=== PATIENT | female | born 1965 | race Caucasian/White ===

== ENCOUNTER 2017-07-07 14:28 | Emergency (ER) | payer OTHER ==
[~2017-07-07] VITALS: Ht 157.5 cm; Wt 64.0 kg
[2017-07-07 14:54] VITALS: Ht 157.5 cm; Wt 64.0 kg
[2017-07-07] MEDS ORDERED: HYDROCODONE/APAP (5/325) TAB PO ONE (17:30)
--- NOTE | 2017-07-07 18:32 | ERD ---
ER Documentation Chief Complaint Date/Time DATE: 07/07/17 TIME: 18:21 Chief Complaint Complains of left side of head and ear pain after a fall No KO HPI This is a 52 year old female presenting to ER after fall and head injury. Patient states she was in the shower when she slipped and fell hitting the back of her head. Patient is also having pain to posterior head and neck. No neck stiffness or obvious abnormality. No loss of consciousness. No nausea or vomiting. No laceration or bleeding. No change in vision, blurry vision or loss of vision. Patient wears glasses. ROS All systems reviewed and are negative except as per history of present illness. Medications Home Meds Active Scripts Hydrocodone/Acetaminophen (Pedro 5-325 Tablet) 1 Each Tablet, 1 TAB PO Q6H Y for PAIN, #7 TAB Prov:BUSHRA NAVARRO NP 07/07/17 Allergies Allergies: Coded Allergies: aspirin (Verified Allergy, Intermediate, Rash, 07/07/17) PMhx/Soc Medical and Surgical Hx: pt denies Medical Hx History of Surgery: Yes (tubal ligation ) Hx Miscellaneous Medical Probl: Yes (right breast biopsy) Hx Alcohol Use: No Hx Substance Use: No Hx Tobacco Use: No Smoking Status: Never smoker Physical Exam Vitals Vital Signs Date Time Temp Pulse Resp B/P Pulse Ox O2 Delivery O2 Flow Rate FiO2 07/07/17 19:47 58 18 115/74 100 Room Air 07/07/17 14:54 98.8 68 20 129/75 99 Physical Exam Const: alert, oriented Head: Atraumatic , no laceration, no obvious deformity Eyes: Normal Conjunctiva ENT: Normal External Ears, Nose and Mouth. Neck: Full range of motion..~ No meningismus. Resp: Clear to auscultation bilaterally Cardio: Regular rate and rhythm, no murmurs Abd: Soft, non tender, non distended. Normal bowel sounds Skin: No petechiae or rashes Back: No midline or flank tenderness Ext: No cyanosis, or edema Neur: Awake and alert Psych: Normal Mood and Affect Results 24 hrs Current Medications Medications (Trade) Dose Ordered Sig/Dm Route PRN Reason Start Time Stop Time Status Last Admin Dose Admin Acetaminophen/ Hydrocodone Bitart (Pedro (5/325)) 1 tab ONCE ONCE PO 07/07/17 17:30 07/07/17 17:31 DC 07/07/17 17:08 Procedures/MDM [place] [id number] Radiology Main Line: [phone] DIAGNOSTIC IMAGING REPORT Patient: ADAM ANN : 1965 Age: 52 Sex: F MR #: [id number] DOS: 07/07/171700 Ordering MD: BUSHRA NAVARRO NP Location: [facility] Room/Bed: PROCEDURE: CT Brain without contrast. CLINICAL INDICATION: Pain status post head injury TECHNIQUE: A CT of the brain was performed on a [employer] CT scanner utilizing axial imaging from the skull base through the vertex without IV contrast. Multiplanar reformatted images were made. Images were reviewed on a PACS workstation. The CTDIvol is 43.12 mGy and the DLP is 823.90 mGycm. One of the following 3 does reduction techniques were used during this CT examination: 1) Automated exposure control 2) Adjustment of the mA +/- kV according to patient size or 3) Use of iterative reconstruction technique COMPARISON: None FINDINGS: There is no intracranial hemorrhage, mass effect, or midline shift. No extra- axial fluid collection is seen. The ventricles and sulci are normal in size and configuration. The density of the brain is normal, and the daniels white matter differentiation appears well-preserved. The visualized scalp and calvarium are normal. The bilateral orbits are normal. The bilateral paranasal sinuses, mastoid air cells and middle ear cavities are clear. IMPRESSION: 1. No evidence of acute intracranial hemorrhage, infarcts, or acute intracranial pathology. 2. Normal noncontrast head CT. [place] [address] Radiology Main Line: [phone] DIAGNOSTIC IMAGING REPORT Patient: ADAM ANN : 1965 Age: 52 Sex: F MR #: [id number] DOS: 07/07/171700 Ordering MD: BUSHRA NAVARRO NP Location: [facility] Room/Bed: PROCEDURE: XR Cervical Spine. CLINICAL INDICATION: 52 years of age, female. Fall. Neck pain.. TECHNIQUE: Three views of the cervical spine. COMPARISON: None available. FINDINGS: Lateral view images from the skull base to T1. Normal alignment. Negative for evidence of acute fracture or traumatic subluxation. Disk heights are preserved. Negative for abnormal prevertebral soft tissue swelling. Visualized aerodigestive tract appears normal. Lung apices are unremarkable. IMPRESSION: Negative for evidence of acute fracture or traumatic subluxation of the cervical spine. Plain films may be falsely negative for acute cervical spine injury and clinical correlation is recommended. If there is strong clinical concern for cervical spine injury, consider CT. MDM: This is a 52-year-old female presenting to emergency department after slip and fall hitting her head earlier today. Denies loss of consciousness, head laceration or bleeding. Patient states she put ice to her head earlier today. Patient continues to have pain to posterior head and cervical spine. No nausea or vomiting. Patient did not take any medications at home. Patient given Pedro 5/325mg while in the ED. CT head reviewed by radiologist as no evidence of acute intracranial hemorrhage, infarcts, or acute intracranial pathology. Normal noncontrast head CT. . Xray cervical spine reviewed by radiologist as negative for evidence of acute fracture or traumatic subluxation of the cervical spine. No fevers or chills. No diplopia, loss of vision or blurry vision. No photophobia. No confusion or altered mental status. Upon reassessment of patient, patient states pain has improved significantly. Patient denies ataxic gait, slurred speech, numbness of the face or body, weakness, clumsiness , or incoordination. Low suspicion for CVA, TIA, meningitis, subdural hematoma, intracranial hemorrhage or mass. Differential diagnosis includes but not limited to tension headache, migraine headache, cluster headache, sinus headache, sinusitis, trigeminal neuralgia, herpes zoster and postherpetic neuralgia. Patient is appropriate for outpatient management will be given prescription for ibuprofen and Pedro 5/325mg #7. Instructed patient to follow-up with primary care provider in the next 2-3 days for reassessment. Resources provided. Return to ED for any high fever, chest pain, difficulty breathing, shortness breath, wheezing, vomiting, diarrhea, abdominal pain or any new or worsening symptoms. Patient verbalizes understanding. All questions answered at discharge. Disclaimer: Inadvertent spelling and grammatical errors are likely due to EHR/ dictation software use and do not reflect on the overall quality of patient care. Also, please note that the electronic time recorded on this note does not necessarily reflect the actual time of the patient encounter. Departure Diagnosis: Primary Impression: Acute head injury Encounter type: initial encounter Qualified Code: S09.90XA - Acute head injury, initial encounter Condition: BUSHRA Leos NP Jul 07, 2017 18:32
--- NOTE | 2017-07-07 18:39 | RADRPT ---
PROCEDURE: CT Brain without contrast. CLINICAL INDICATION: Pain status post head injury TECHNIQUE: A CT of the brain was performed on a [employer] CT scanner utilizing axial imaging f rom the skull base through the vertex without IV contrast. Multiplanar reformatted images were made . Images were reviewed on a PACS workstation. The CTDIvol is 43.12 mGy and the DLP is 823.90 mGycm . One of the following 3 does reduction techniques were used during this CT examination: 1) Automated exposure control 2) Adjustment of the mA +/- kV according to patient size or 3) Use of iterative reconstruction technique COMPARISON: None FINDINGS: There is no intracranial hemorrhage, mass effect, or midline shift. No extra-axial fluid collection is seen. The ventricles and sulci are normal in size and configuration. The density of the brain is normal, and the daniels white matter differentiation appears well-preserved. The visualized scalp and calvarium are normal. The bilateral orbits are normal. The bilateral parana juli sinuses, mastoid air cells and middle ear cavities are clear. IMPRESSION: 1. No evidence of acute intracranial hemorrhage, infarcts, or acute intracranial pathology. 2. Normal noncontrast head CT. RPTAT: HDC .Elena Flores MD, MD Date Time Electronically viewed and signed by .Elena Flores MD, MD on 07/07/2017 18:38 .C/
--- NOTE | 2017-07-07 19:11 | RADRPT ---
PROCEDURE: XR Cervical Spine. CLINICAL INDICATION: 52 years of age, female. Fall. Neck pain.. TECHNIQUE: Three views of the cervical spine. COMPARISON: None available. FINDINGS: Lateral view images from the skull base to T1. Normal alignment. Negative for evidence of acute fracture or traumatic subluxation. Disk heights are preserved. Negative for abnormal prevertebral soft tissue swelling. Visualized aerodigestive tract appears normal. Lung apices are unremarkable. IMPRESSION: Negative for evidence of acute fracture or traumatic subluxation of the cervical spine. Plain films may be falsely negative for acute cervical spine injury and clinical correlation is winsome mmended. If there is strong clinical concern for cervical spine injury, consider CT. RPTAT: HCTS Physician Alejandra Date Time Electronically viewed and signed by Physician Alejandra on 07/07/2017 19:11 /
[2017-07-07] MEDS ORDERED: HYDR-906 PO (19:35)
[2017-07-07 19:47] VITALS: BP 115/74; PULSE 58; RESP 18
== END 2017-07-07 19:47 | disposition home or self-care (01) ==
LOC: FTE 14:28
DX: S09.90XA Unspecified injury of head, initial encounter (principal); W01.0XXA Fall on same level from slipping, tripping and stumbling without subsequent striking against object, initial encounter; Y92.9 Unspecified place or not applicable
CPT/HCPCS: 70450; 72040